=== PATIENT | female | born 1965 | race Caucasian/White ===

== ENCOUNTER 2016-08-23 11:23 | Emergency (ER) | payer SELFPAY ==
[~2016-08-23] VITALS: Ht 160 cm; Wt 79.0 kg
[2016-08-23 11:38] VITALS: Ht 160 cm; Wt 79.0 kg
== END 2016-08-23 13:53 | disposition left against medical advice (07) ==
LOC: FTE 11:23
DX: Z53.21 Procedure and treatment not carried out due to patient leaving prior to being seen by health care provider (principal)

== ENCOUNTER 2019-03-15 21:39 | Emergency (ER) | payer MEDICAID ==
[~2019-03-15] VITALS: Ht 160 cm; Wt 79.2 kg
[~2019-03-15 21:39] MED LIST: CIPR500T4 PO; TRAM50TA2 PO
[2019-03-15 21:45] VITALS: Ht 160 cm; Wt 79.2 kg
[2019-03-15] MEDS ORDERED: SOD CHLORIDE 0.9% 1,000 ML IV STA (22:18)
[2019-03-15] MEDS: ONDANSETRON 4 MG INJ IV STA ×2 (22:35→22:44)
[2019-03-15] MEDS: morphine 4 MG/ML VIAL IV STA ×2 (22:35→22:44)
[2019-03-15] MEDS ORDERED: KETOROLAC 30 MG INJ IV STA (22:45)
--- NOTE | 2019-03-15 23:55 | ERD ---
ER Documentation Chief Complaint Chief Complaint C/O WORSENING AREN LOWER BACK PAIN X2 WEEKS HPI This is a 53-year-old female complaining of worsening bilateral lower back pain for the past 2 weeks. Pain is mild to moderate intensity. She has been told that she had UTIs twice in the past 6 months. She denies fevers or chills. She does feel like she has urgency and frequency of urination but no zohra dysuria. Denies any nausea vomiting. Denies any bowel or bladder incontinence. Denies any other current issues. ROS All systems reviewed and are negative except as per history of present illness. Allergies Allergies: Coded Allergies: No Known Allergy (Unverified , 03/15/19) PMhx/Soc History of Surgery: Yes ( AND L OOPHRECTOMY AND TUBE) Anesthesia Reaction: No Hx Neurological Disorder: No Hx Respiratory Disorders: No Hx Cardiac Disorders: No Hx Psychiatric Problems: No Hx Miscellaneous Medical Probl: No Hx Alcohol Use: No Hx Substance Use: No Hx Tobacco Use: No Smoking Status: Never smoker Physical Exam Vitals Vital Signs Date Temp Pulse Resp B/P (MAP) Pulse Ox O2 O2 Flow FiO2 Time Delivery Rate 03/15/19 97.1 98 19 168/67 99 21:45 (100) Physical Exam Const: No acute distress Head: Atraumatic Eyes: Normal Conjunctiva ENT: Normal External Ears, Nose and Mouth. Neck: Full range of motion. No meningismus. Resp: Clear to auscultation bilaterally Cardio: Regular rate and rhythm, no murmurs Abd: Soft, non tender, non distended. Normal bowel sounds Skin: No petechiae or rashes Back: No midline or flank tenderness Ext: No cyanosis, or edema Neur: Awake and alert Psych: Normal Mood and Affect Result Diagram: 03/15/19222803/15/192228 Results 24 hrs Laboratory Tests Test 03/15/19 22:29 03/15/19 22:45 White Blood Count 5.0 10^3/ul Red Blood Count 4.22 10^6/ul Hemoglobin 12.0 g/dl Hematocrit 36.9 % Mean Corpuscular Volume 87.4 fl Mean Corpuscular Hemoglobin 28.4 pg Mean Corpuscular Hemoglobin Concent 32.5 g/dl Red Cell Distribution Width 13.4 % Platelet Count 169 10^3/UL Mean Platelet Volume 10.0 fl Immature Granulocytes % 0.400 % Neutrophils % 54.2 % Lymphocytes % 33.7 % Monocytes % 8.1 % Eosinophils % 3.2 % Basophils % 0.4 % Nucleated Red Blood Cells % 0.0 /100WBC Immature Granulocytes # 0.020 10^3/ul Neutrophils # 2.7 10^3/ul Lymphocytes # 1.7 10^3/ul Monocytes # 0.4 10^3/ul Eosinophils # 0.2 10^3/ul Basophils # 0.0 10^3/ul Nucleated Red Blood Cells # 0.0 10^3/ul Sodium Level 140 mmol/L Potassium Level 3.9 mmol/L Chloride Level 102 mmol/L Carbon Dioxide Level 31 mmol/L Anion Gap 7 Blood Urea Nitrogen 22 mg/dl Creatinine 0.74 mg/dl Est Glomerular Filtrat Rate mL/min > 60 mL/min Glucose Level 98 mg/dl Calcium Level 9.5 mg/dl Total Bilirubin 0.3 mg/dl Direct Bilirubin 0.00 mg/dl Indirect Bilirubin 0.3 mg/dl Aspartate Amino Transf (AST/SGOT) 24 IU/L Alanine Aminotransferase (ALT/SGPT) 34 IU/L Alkaline Phosphatase 74 IU/L Total Protein 8.0 g/dl Albumin 4.7 g/dl Globulin 3.30 g/dl Albumin/Globulin Ratio 1.42 Lipase 67 U/L Urine Color YELLOW Urine Clarity SLIGHTLY CLOUDY Urine pH 5.0 Urine Specific [place] 1.018 Urine Ketones NEGATIVE mg/dL Urine Nitrite NEGATIVE mg/dL Urine Bilirubin NEGATIVE mg/dL Urine Urobilinogen NEGATIVE mg/dL Urine Leukocyte Esterase TRACE Darline/ul Urine Microscopic RBC 10 /HPF Urine Microscopic WBC 2 /HPF Urine Squamous Epithelial Cells FEW /HPF Urine Mucus FEW /HPF Urine Hemoglobin 2+ mg/dL Urine Glucose NEGATIVE mg/dL Urine Total Protein NEGATIVE mg/dl Current Medications Medications Dose Sig/Karla Start Time Status Last (Trade) Ordered Route PRN Stop Time Admin Dose Reason Admin Sodium 1,000 ml @ Q1H STAT 03/15/19 DC 03/15/19 Chloride 1,000 mls/hr IV 22:18 22:35 03/15/19 23:17 Morphine 4 mg ONCE STAT 03/15/19 DC Sulfate IV 22:18 (morphine) 03/15/19 22:21 Ondansetron 4 mg ONCE STAT 03/15/19 DC HCl (Zofran IV 22:18 Inj) 03/15/19 22:21 Ketorolac 30 mg ONCE STAT 03/15/19 DC Tromethamine IV 22:45 (Toradol) 03/15/19 22:46 Procedures/MDM Medical decision making: Patient's musculoskeletal symptoms have stabilized while they have been evaluated in the department and are appropriate for outpatient work up. No evidence of cauda equina, cord compression, infiltrative, or infectious etiology. Patient's gastrointestinal symptoms have stabilized while in the department. No evidence of severe dehydration, sepsis, or surgical abdomen. Extensive discussion with family and patient that occult disease cannot be ruled out. 8 hour recheck for repeat abdominal exam is planned. Patient symptomology is consistent with a ascending UTI. She does seem to have a component of musculoskeletal back pain as well. Patient will be discharged home with tramadol for pain control along with ciprofloxacin for antibiotic. Follow-up with PCP. Return for worsening symptoms. Departure Diagnosis: Primary Impression: Back pain Back pain location: back pain in unspecified location Chronicity: unspecified Back pain laterality: unspecified Qualified Codes: M54.9 - Dorsalgia, unspecified Additional Impression: Urinary tract infection Urinary tract infection type: site unspecified Hematuria presence: without hematuria Qualified Codes: N39.0 - Urinary tract infection, site not specified Condition: Stable NESSA OLIVAS Mar 15, 2019 23:55
[2019-03-16 00:03] VITALS: BP 157/67; PULSE 74; RESP 20
== END 2019-03-16 00:06 | disposition home or self-care (01) ==
LOC: E/R 21:39
DX: M54.5 Low back pain (principal); N39.0 Urinary tract infection, site not specified
CPT/HCPCS: 36415; 74176; 80053; 81001; 83690; 85025; 87086; J1885; J7030; Z7502; J2270; J2405